=== PATIENT | male | born 1945 | race Caucasian/White ===

== ENCOUNTER 2023-09-30 12:18 | Inpatient (IN) | payer OTHER ==
[~2023-09-30] VITALS: Ht 175.3 cm; Wt 93.1 kg
[~2023-09-30 12:18] MED LIST: AMLO5CAP38; GLYB1POW; METF-370; SIMV80TA17; TRIA25CA; [UNRECOGNIZED DRUG - CODE]
[2023-09-30] MEDS ORDERED: DEXTROSE 50% SYRINGE 50 ML IV ONE (13:20)
[2023-09-30] MEDS ORDERED: DEXTROSE (50%) 50ML SYRG IV ONE ×2 (13:30→17:15)
[2023-09-30 13:41] LABS: Basophils # (auto) 0 10 ^3/uL (0-0.2); Basophils % (auto) 0.3 % (0.0-2.0); Eosinophils # (auto) 0.1 10 ^3/uL (0-0.8); Eosinophils % (auto) 0.6 % (0.0-7.0); Hematocrit 34.9 % (41.0-53.0); Hemoglobin 11.4 g/dL (13.5-17.5); Lymphocytes # (auto) 0.5 10 ^3/uL (0.4-5.4); Lymphocytes % (auto) 5.1 % (10.0-50.0); Mean Corpuscular Hemoglobin 27.6 pg (28.0-32.0); Mean Corpuscular Hgb Conc. 32.8 g/dL (32.0-36.0); Mean Corpuscular Volume 84.2 fL (80.0-100.0); Monocytes # (auto) 0.8 10 ^3/uL (0-1.3); Monocytes % (auto) 7.9 % (0.0-12.0); Neutrophils # (auto) 8.6 10 ^3/uL (1.6-8.6); Neutrophils % (auto) 86.1 % (37.0-80.0); Nucleated Red Blood Cells % 0.1 %; Red Blood Cells 4.14 10^6/uL (4.5-5.90); Red Cell Distribution Width 16.1 % (11.8-14.3)
[2023-09-30 13:58] LABS: Alanine Aminotransferase 11 U/L (7-40); Albumin 4.5 g/dL (3.2-4.8); Alkaline Phosphatase 99 U/L (46-116); Anion Gap 7 (5-15); Aspartate Aminotransferase 14 U/L (13-40); BUN/Creatinine Ratio 12.3 (10.0-20.0); Blood Urea Nitrogen 9 mg/dL (9-23); Calcium 10.3 mg/dL (8.7-10.4); Carbon Dioxide 24 mmol/L (20-30); Chloride 106 mmol/L (98-107); Potassium 3.7 mmol/L (3.5-5.1); Sodium 137 mmol/L (136-145)
[2023-09-30 13:59] LABS: Bilirubin, Total 0.2 mg/dL (0.2-1.0)
[2023-09-30 14:06] VITALS: PULSE 91; RESP 17; O2SAT 97
[2023-09-30 14:07] LABS: Glucose 45 mg/dL (74-106)
[2023-09-30 16:06] LABS: Urine Bacteria NONE SEEN /hpf (None Seen); Urine Blood Negative /uL (Negative); Urine Clarity Clear (Clear); Urine Color Colorless (Yellow); Urine Protein, UAD Negative (Negative); Urine Specific Gravity 1.005 (1.001-1.035); Urine Urobilinogen Normal (Negative); Urine WBC 31 /hpf (0 - 3); Urine pH 5.5 (5.0-8.0)
[2023-09-30] MEDS ORDERED: NITROGLYCERIN 0.4 MG SL TAB SL PRN (17:30)
[2023-09-30] MEDS ORDERED: ONDANSETRON HCL 4 MG/2 ML VIAL IV PRN (17:30)
[2023-09-30] MEDS ORDERED: ACETAMINOPHEN 325 MG TAB PO PRN (17:30)
[2023-09-30] MEDS ORDERED: HYDROcodone-ACET 5/325MG TAB PO PRN (17:30)
[2023-09-30] MEDS ORDERED: MORPHINE SULFATE INJ 2 MG/ml SYRG IV PRN ×2 (17:30)
[2023-09-30] MEDS ORDERED: DEXTROSE 10% 1,000 ML IV ONE (17:51)
[2023-09-30] MEDS: DEXTROSE 10% 1,000 ML IV SCH (18:44)
[2023-09-30 19:30] VITALS: PULSE 83; RESP 16; O2SAT 98
[2023-09-30] MEDS ORDERED: DEXTROSE (50%) 50ML SYRG IV PRN (19:45)
[2023-09-30] MEDS ORDERED: ACCU-CHEK COMFORT CURVE STRIP VI SCH (20:00)
[2023-09-30] MEDS: ACCU-CHEK COMFORT CURVE STRIP VI SCH ×2 (20:15→22:16)
[2023-10-01 00:25] VITALS: PULSE 90; RESP 22; O2SAT 96
[2023-10-01] MEDS: ACCU-CHEK COMFORT CURVE STRIP VI SCH ×12 (02:00→22:21)
[2023-10-01] MEDS: DEXTROSE 10% 1,000 ML IV SCH ×3 (04:18→16:17)
[2023-10-01 05:54] LABS: Basophils # (auto) 0.1 10 ^3/uL (0-0.2); Basophils % (auto) 0.7 % (0.0-2.0); Eosinophils # (auto) 0.2 10 ^3/uL (0-0.8); Eosinophils % (auto) 2.1 % (0.0-7.0); Hematocrit 31.3 % (41.0-53.0); Hemoglobin 10.4 g/dL (13.5-17.5); Lymphocytes # (auto) 0.9 10 ^3/uL (0.4-5.4); Lymphocytes % (auto) 11.3 % (10.0-50.0); Mean Corpuscular Hemoglobin 27.8 pg (28.0-32.0); Mean Corpuscular Hgb Conc. 33.3 g/dL (32.0-36.0); Mean Corpuscular Volume 83.6 fL (80.0-100.0); Monocytes # (auto) 0.9 10 ^3/uL (0-1.3); Monocytes % (auto) 12.1 % (0.0-12.0); Neutrophils # (auto) 5.5 10 ^3/uL (1.6-8.6); Neutrophils % (auto) 73.8 % (37.0-80.0); Red Blood Cells 3.74 10^6/uL (4.5-5.90); Red Cell Distribution Width 16.4 % (11.8-14.3); White Blood Cell 7.5 10^3/uL (4.4-10.8)
[2023-10-01 08:00] VITALS: PULSE 71; RESP 18; O2SAT 96
[2023-10-01] MEDS: ENOXAPARIN SOD 40 MG/0.4 ML SYRINGE SC SCH (10:00)
[2023-10-01 20:01] VITALS: PULSE 83; RESP 14; O2SAT 95
[2023-10-02] VITALS (12 sets, daily range): BP systolic 154–183; BP diastolic 59–109; PULSE 86–109; RESP 9–25; TEMP 36.7; O2SAT 95–99
[2023-10-02] MEDS: hydrALAZINE HCL 20 MG/ML VL IV PRN ×2 (00:50→12:04)
[2023-10-02] MEDS: ACCU-CHEK COMFORT CURVE STRIP VI SCH ×7 (02:00→15:41)
[2023-10-02 06:04] LABS: Basophils # (auto) 0.1 10 ^3/uL (0-0.2); Basophils % (auto) 0.7 % (0.0-2.0); Eosinophils # (auto) 0.3 10 ^3/uL (0-0.8); Eosinophils % (auto) 3.1 % (0.0-7.0); Hematocrit 32.8 % (41.0-53.0); Hemoglobin 10.8 g/dL (13.5-17.5); Lymphocytes # (auto) 0.7 10 ^3/uL (0.4-5.4); Lymphocytes % (auto) 7.6 % (10.0-50.0); Mean Corpuscular Hemoglobin 28.2 pg (28.0-32.0); Mean Corpuscular Volume 85.3 fL (80.0-100.0); Monocytes # (auto) 1.4 10 ^3/uL (0-1.3); Monocytes % (auto) 14.5 % (0.0-12.0); Neutrophils # (auto) 7.2 10 ^3/uL (1.6-8.6); Neutrophils % (auto) 74.1 % (37.0-80.0); Red Blood Cells 3.84 10^6/uL (4.5-5.90); Red Cell Distribution Width 16.1 % (11.8-14.3); White Blood Cell 9.7 10^3/uL (4.4-10.8)
[2023-10-02 06:29] LABS: Alanine Aminotransferase 10 U/L (7-40); Alkaline Phosphatase 102 U/L (46-116); Anion Gap 7 (5-15); BUN/Creatinine Ratio 11.5 (10.0-20.0); Blood Urea Nitrogen 11 mg/dL (9-23); Calcium 10.6 mg/dL (8.5-10.1); Carbon Dioxide 25 mmol/L (20-30); Chloride 107 mmol/L (98-107); Potassium 4.1 mmol/L (3.5-5.1); Sodium 139 mmol/L (136-145)
[2023-10-02 06:30] LABS: Albumin 4.1 g/dL (3.2-4.8); Aspartate Aminotransferase 10 U/L (13-40); Bilirubin, Total 0.3 mg/dL (0.2-1.0); Total Protein 6.4 g/dL (5.7-8.2)
[2023-10-02 06:37] LABS: Glucose 210 mg/dL (74-106)
[2023-10-02] MEDS: ENOXAPARIN SOD 40 MG/0.4 ML SYRINGE SC SCH (08:18)
[2023-10-02] MEDS ORDERED: cefTRIAXone 1GM/50ML D5W 50 ML IV SCH (09:00)
[2023-10-02] MEDS ORDERED: DEXTROSE (50%) 50ML SYRG IV PRN (09:45)
[2023-10-02] MEDS ORDERED: [UNRECOGNIZED DRUG - CODE] PO (10:31)
[2023-10-02] MEDS ORDERED: NORT10CA GT (10:31)
[2023-10-02] MEDS ORDERED: ATOR20TA50 PO (10:31)
[2023-10-02] MEDS ORDERED: METF-370 PO (10:31)
[2023-10-02] MEDS ORDERED: POTA10TA51 PO (10:31)
[2023-10-02] MEDS ORDERED: GLIP10TA9 PO (10:31)
[2023-10-02] MEDS ORDERED: AMLO1TAB23 PO (10:31)
[2023-10-02] MEDS ORDERED: HYDR-4902 PO (10:31)
[2023-10-02] MEDS ORDERED: GABA-1250 PO (10:31)
[2023-10-02] MEDS ORDERED: CEPH500C PO (11:09)
[2023-10-02] MEDS: InsuLIN REG 1unit/0.01ml Soln (100units/ml) SC SCH ×2 (11:25→15:41)
== END 2023-10-02 16:50 | disposition home health service (06) | DRG 637 ==
LOC: EDBD 12:18 → ER 12:18 → TELE 17:33 → DOU IN ICU 10-02 01:28
PROVIDERS: ADMIT Internal Medicine; ATTEND Internal Medicine
DX: E11.649 Type 2 diabetes mellitus with hypoglycemia without coma (principal); G93.41 Metabolic encephalopathy; N39.0 Urinary tract infection, site not specified; H40.9 Unspecified glaucoma; I11.0 Hypertensive heart disease with heart failure; E78.5 Hyperlipidemia, unspecified; E83.52 Hypercalcemia; E11.42 Type 2 diabetes mellitus with diabetic polyneuropathy; I50.9 Heart failure, unspecified; Z87.442 Personal history of urinary calculi
CPT/HCPCS: 36415; 80053; 81001; 82962; 83036; 84484; 85025; 87081; 87086; 93005; 99291; G0378; J0696